=== PATIENT | female | born 1985 | race Caucasian/White ===

== ENCOUNTER 2019-11-21 16:03 | Emergency (ER) | payer BC ==
[2019-11-21] MEDS ORDERED: Albuterol/Ipratropium 3.0-0.5 MG/3 ML Neb Soln NEB ONE (16:29)
[2019-11-21] MEDS ORDERED: Dexamethasone 10 MG/ML SDV IVPUSH ONE (16:29)
[2019-11-21] MEDS ORDERED: diphenhydrAMINE 50 MG/ML SDV IVPUSH ONE (16:29)
[2019-11-21] MEDS ORDERED: Sodium Chloride 0.9% 1,000 ML IV SCH (16:30)
[2019-11-21] MEDS ORDERED: Famotidine 20 MG/2 ML SDV IVPUSH ONE (16:30)
--- NOTE | 2019-11-21 16:33 | EDM.PDOC ---
ED HPI GENERAL MEDICAL PROBLEM - General Chief Complaint: Allergic Reaction Stated Complaint: POSS ALLERGIC REACTION Time Seen by Provider: 11/21/19 16:18 Source of Information: Reports: Patient History Limitations: Reports: Physical Impairment (Worse and having difficulty breathing.) - History of Present Illness INITIAL COMMENTS - FREE TEXT/NARRATIVE: 34-year-old female presents to the ED with acute onset of allergic response [place]. She had finished golfing in spite of it being a fairly windy day. Well drinking a seltzer type beer and eating some peanuts she started to develop hoarseness and difficulty breathing with a feeling of her throat closing in. This started about 20 to 30 minutes after eating the peanuts and other snacks that were there. Is no history of asthma. She states her palms of her hands became very pruritic but she did not develop any hives. At the time of presentation she has significant swelling of her upper eyelids i.e. edema. She has a very hoarse croaky voice. She is not wheezing. She took 50 mg of Benadryl about 40 minutes ago. Past history of any allergies. Onset: Today Onset Date: 11/21/19 Onset Time: 15:15 Duration: Minutes: Location: Reports: Face (Lung of throat closure. Both upper eyelids and upper lip), Neck, Chest, Other (Pruritus of the palms of her hands.). Denies: Abdomen (Difficulty breathing), Back, Pelvis Quality: Reports: Other Severity: Moderate (Hoarseness and difficulty breathing due to a feeling of throat closing in.) Improves with: Reports: None Worsens with: Reports: None Context: Reports: Other (Spontaneous occurrence while sitting down having a seltzer type beer drink after golfing and some peanuts and other snacks that were on the table.). Denies: Activity, Exercise, Lifting, Sick Contact, Trauma Associated Symptoms: Reports: Chest Pain (Last heaviness I believe due to bronchospasm), Cough, Shortness of Breath, Other (Hoarseness and a sense of inability to get her breath.). Denies: Confusion, cough w sputum (Productive cough), Diaphoresis, Fever/Chills, Headaches, Loss of Appetite, Malaise, Nausea/ Vomiting, Rash, Seizure, Syncope Treatments INTELLIGENCE CONSULTANT: Reports: Other (see below) (Patient took Benadryl 50 mg 45 minutes before coming to the ED) - Related Data Allergies Allergy/AdvReac Type Severity Reaction Status Date / Time No Known Allergies Allergy Verified 11/21/19 16:12 Home Meds: Home Meds FLUoxetine HCl [Fluoxetine] 20 mg PO DAILY 11/21/19 [History] predniSONE [Prednisone] 20 mg PO BID #8 tablet 11/21/19 [Rx] Past Medical History HEENT History: Reports: None Cardiovascular History: Reports: None Respiratory History: Reports: None Gastrointestinal History: Reports: None, GERD Genitourinary History: Reports: None SERVICE DEVELOPER History: Reports: , Other (See Below) Other SERVICE DEVELOPER History: Uterine Fibroid Musculoskeletal History: Reports: None Neurological History: Reports: Migraines Psychiatric History: Reports: Anxiety, Depression, Other (See Below) Other Psychiatric History: Bulimia in 2013 Endocrine/Metabolic History: Reports: None Hematologic History: Reports: None Immunologic History: Reports: None Oncologic (Cancer) History: Reports: None Dermatologic History: Reports: None - Infectious Disease History Infectious Disease History: Reports: None - Past Surgical History GI Surgical History: Reports: Other (See Below) Other GI Surgeries/Procedures: Hernia repair in 2015 Social & Family History - Family History Family Medical History: Noncontributory - Tobacco Use Smoking Status *Q: Former Smoker Used Tobacco, but Quit: Yes Month/Year Tobacco Last Used: 07/2009 Second Hand Smoke Exposure: Yes - Caffeine Use Caffeine Use: Reports: Coffee - Recreational Drug Use Recreational Drug Use: No - Living Situation & Occupation Living situation: Reports: Occupation: Unemployed ED ROS ALLERGIC REACTION - Review of Systems Review Of Systems: See Below Constitutional: Denies: Fever, Chills, Malaise, Weakness, Fatigue, Decreased Appetite, Weight Loss HEENT: Reports: Throat Swelling (With a sense of inability to get her breath.), Other (Noted swelling of her upper eyelids bilaterally also upper lip.) Respiratory: Reports: Shortness of Breath, Cough, Other (Nonproductive antral chest pressure heaviness). Denies: Wheezing, Pleuritic Chest Pain, Sputum, Hemoptysis Cardiovascular: Reports: Chest Pain (Central chest pressure heaviness I believe due to bronchospasm). Denies: Blood Pressure Problem, Claudication, Dyspnea on Exertion, Edema, Lightheadedness, Orthopnea, Palpitations Endocrine: Reports: No Symptoms GI/Abdominal: Reports: No Symptoms. Denies: Diarrhea, Nausea, Vomiting : Reports: No Symptoms Musculoskeletal: Reports: No Symptoms Skin: Reports: Other Neurological: Reports: No Symptoms (Of her upper eyelids but no development of urticaria.) Psychiatric: Reports: Anxiety Hematologic/Lymphatic: Reports: No Symptoms Immunologic: Reports: No Symptoms ED EXAM GENERAL NO PERIP PULSE - Physical Exam Exam: See Below Exam Limited By: No Limitations General Appearance: Alert, WD/WN, Moderate Distress (Very hoarse voice.) Eye Exam: Bilateral Eye: PERRL, Other (And has significant edema of her upper eyelids. There is no conjunctival edema. No conjunctival injection.) Ears: Normal TMs Nose: Other (Nasally congested and has to breathe through her mouth. Clear rhinorrhea) Throat/Mouth: Other (There is no swelling of the uvula or the floor the mouth. Tongue is also normal. Upper lip is mildly thickened.) Head: Atraumatic, Normocephalic, Other (Swelling of both upper eyelids and upper lip.) Neck: Normal Inspection, Supple, Non-Tender, Full Range of Motion. No: Lymphadenopathy (L), Lymphadenopathy (R) Respiratory/Chest: Lungs Clear, No Accessory Muscle Use, Chest Non-Tender, Respiratory Distress, Other (No stridor). No: Crackles, Rales, Rhonchi, Wheezing (Tachypnea) Cardiovascular: Normal Peripheral Pulses, Regular Rate, Rhythm, No Edema, No Gallop, No Murmur, No Rub GI/Abdominal: Normal Bowel Sounds, Soft, Non-Tender, No Organomegaly, No Distention, No Mass, Pelvis Stable Back Exam: Normal Inspection, Full Range of Motion. No: CVA Tenderness (L), CVA Tenderness (R) Extremities: Normal Inspection, Normal Range of Motion, Non-Tender Neurological: Alert, Oriented, CN II-XII Intact, Normal Cognition, Normal Gait Psychiatric: Normal Affect, Anxious Skin Exam: Warm, Dry, Intact, Normal Color, No Rash, Other (No urticaria) Course - Vital Signs Last Recorded V/S: Last Vital Signs Temp 36.4 C 11/21/19 16:09 Pulse 75 11/21/19 16:09 Resp 20 11/21/19 16:09 BP 116/67 11/21/19 16:09 Pulse Ox 97 11/21/19 16:29 - Orders/Labs/Meds Orders: Active Orders 24 hr Category Date Time Status RT Aerosol Therapy [RC] ASDIRECTED Care 11/21/19 16:29 Active Sodium Chloride 0.9% [Normal Saline] 1,000 ml Med 11/21/19 16:30 Active IV ASDIRECTED Medication Orders Sodium Chloride (Normal Saline) 1,000 mls @ 500 mls/hr IV ASDIRECTED LAINA Last Admin: 11/21/19 16:47 Dose: 500 mls/hr Meds: Medications Generic Name Dose Route Start Last Admin Trade Name Freq PRN Reason Stop Dose Admin Sodium Chloride 1,000 mls @ 500 mls/hr 11/21/19 16:30 11/21/19 16:47 Normal Saline IV 500 mls/hr ASDIRECTED LAINA Administration Discontinued Medications Generic Name Dose Route Start Last Admin Trade Name Freq PRN Reason Stop Dose Admin Albuterol/Ipratropium 3 ml 11/21/19 16:29 11/21/19 16:45 Duoneb 3.0-0.5 Mg/3 Ml NEB 11/21/19 16:30 3 ml ONETIME ONE Administration Dexamethasone 12 mg 11/21/19 16:29 11/21/19 16:47 Dexamethasone IVPUSH 11/21/19 16:30 12 mg ONETIME ONE Administration Diphenhydramine HCl 25 mg 11/21/19 16:29 11/21/19 16:47 Benadryl IVPUSH 11/21/19 16:30 25 mg ONETIME ONE Administration Famotidine 20 mg 11/21/19 16:30 11/21/19 16:48 Pepcid IVPUSH 11/21/19 16:31 20 mg ONETIME ONE Administration - Radiology Interpretation Free Text/Narrative:: 34-year-old female presents to the ED with sudden onset of allergic reaction symptoms after golfing today. She states she had a seltzer type beer that she was drinking and having some snacks on the table that contain peanuts which he has had many times in the past without issue. Within 20 minutes she started to develop shortness of breath and a feeling of her throat closing in. She has developed swelling of both upper eyelids and her upper lip. She took Benadryl 50 mg 40 minutes before coming to the ED. Her chief complaint is a heaviness in her chest and difficulty getting her breath. Exam shows no wheezing but she is very hoarse suggesting edema of the glottis. Its are normal at this time. Clinically she has suffered a allergic reaction to something that she is eaten. She will be given dexamethasone 12 mg IV with Pepcid 20 mg IV and Benadryl 25 mg IV. She also received a DuoNeb nebulizer treatment and be monitored closely. IV fluids will be normal saline at 500 mils an hour. - Re-Assessments/Exams Free Text/Narrative Re-Assessment/Exam: 11/21/19 17:06 check she is feeling somewhat better. Heaviness in her chest is somewhat relieved after DuoNeb treatment. Her voice is a little less hoarse than it was as well and she feels like she is getting better and not worse. Will review in 1/2 hour. Departure - Departure Time of Disposition: 17:47 Disposition: Home, Self-Care 01 Condition: Fair Clinical Impression: Allergic reaction Qualifiers: Encounter type: initial encounter Qualified Code(s): T78.40XA - Allergy, unspecified, initial encounter - Discharge Information *PRESCRIPTION DRUG MONITORING PROGRAM REVIEWED*: Not Applicable *COPY OF PRESCRIPTION DRUG MONITORING REPORT IN PATIENT BYRON: Not Applicable Prescriptions: predniSONE [Prednisone] 20 mg PO BID #8 tablet Instructions: Allergies, Adult, [id number] Referrals: Rodríguez Herman MD [Primary Care Provider] - Forms: ED Department Discharge Additional Instructions: Patient in the emergency room today in regards to development of an acute allergic reaction to something you have eaten after golfing today. The offensive substance is unclear at this time. He developed significant swelling of your upper eyelids and your upper lip as well as significant hoarseness indicating swelling around the glottis or vocal cords. Your lower lungs were clear to auscultation with no wheezing. Took Benadryl 50 mg 40 minutes before coming to the ED. In the ER he received intravenous fluids with dexamethasone 12 mg and Pepcid 20 mg and a further dose of Benadryl 25 mg to alleviate allergic reaction. Treatment at home is to continue Benadryl 50 mg every 6 hours if needed for recurrence of swelling and/or itching. You will need to stay on prednisone 20 mg twice daily with breakfast and supper for the next 4 days with the next dose due tomorrow morning. Cadence elena should have fairly marked improvement over the next 24 to 36 hours. Sepsis Event Note - Evaluation Sepsis Screening Result: No Definite Risk - Focused Exam Vital Signs: Vital Signs Temp Pulse Resp BP Pulse Ox Pulse Ox 11/21/19 16:29 97 11/21/19 16:09 36.4 C 75 20 116/67 99 Date Exam was Performed: 11/21/19 Time Exam was Performed: 17:46 - My Orders Last 24 Hours: My Active Orders 11/21/19 16:29 RT Aerosol Therapy [RC] ASDIRECTED 11/21/19 16:30 Sodium Chloride 0.9% [Normal Saline] 1,000 ml IV ASDIRECTED - Assessment/Plan Last 24 Hours: My Active Orders 11/21/19 16:29 RT Aerosol Therapy [RC] ASDIRECTED 11/21/19 16:30 Sodium Chloride 0.9% [Normal Saline] 1,000 ml IV ASDIRECTED
== END 2019-11-21 18:07 | disposition home or self-care (01) ==
LOC: JD.ED 16:03
DX: T78.1XXA Other adverse food reactions, not elsewhere classified, initial encounter (principal); F32.9 Major depressive disorder, single episode, unspecified; Z79.899 Other long term (current) drug therapy; F41.9 Anxiety disorder, unspecified; Z87.891 Personal history of nicotine dependence
CPT/HCPCS: 94640; 96361; 96374; 96375; 99283; J1100; J1200; J3490; J7030; 99284; J7620-GY